=== PATIENT | male | born 1950 | race Caucasian/White ===

== ENCOUNTER 2018-12-10 17:29 | Emergency (ER) | payer OTHER, BC ==
[~2018-12-10] VITALS: Ht 177.8 cm; Wt 95.3 kg
[2018-12-10 17:31] VITALS: BP 152/84
[2018-12-10] MEDS ORDERED: NORCO 5-325 TA1 EAC1 PO (20:35)
[2018-12-10] MEDS ORDERED: KEFLEX500 M1 PO (20:35)
== END 2018-12-10 21:15 | disposition home or self-care (01) ==
LOC: ER 17:29
DX: S62.635A Displaced fracture of distal phalanx of left ring finger, initial encounter for closed fracture (principal); S61.315A Laceration without foreign body of left ring finger with damage to nail, initial encounter; S66.325A Laceration of extensor muscle, fascia and tendon of left ring finger at wrist and hand level, initial encounter; I10 Essential (primary) hypertension; W23.0XXA Caught, crushed, jammed, or pinched between moving objects, initial encounter; Y93.89 Activity, other specified; Y92.89 Other specified places as the place of occurrence of the external cause; Y99.8 Other external cause status